=== PATIENT | female | born 1995 | race Caucasian/White ===

== ENCOUNTER 2017-05-12 20:17 | Emergency (ER) | payer OTHER ==
[~2017-05-12 20:17] MED LIST: COLACE 100MG C100 MG PO
== END 2017-05-12 23:10 | disposition left against medical advice (07) ==
LOC: ER1 20:17
DX: Z53.21 Procedure and treatment not carried out due to patient leaving prior to being seen by health care provider (principal)

== ENCOUNTER → 2021-05-18 | Outpatient (CLI) | payer OTHER ==
[~2021-05-18] MED LIST changes: +HYDROCODON-ACE1 EAC2 PO
== END ==
LOC: KOH-I 10:19
DX: S83.242A Other tear of medial meniscus, current injury, left knee, initial encounter (principal)
CPT/HCPCS: 73721

== ENCOUNTER → 2021-06-19 | Day surgery (SDC) | payer OTHER ==
[~2021-06-19] VITALS: Ht 162.6 cm; Wt 75.7 kg
[2021-06-19 06:34] LABS: HEMOGLOBIN 15.9 gm/dl (12.3-15.3); RED BLOOD COUNT 5.12 M/UL (4.00-5.10); WHITE BLOOD COUNT 9.7 K/UL (4.5-11.0)
[2021-06-19 06:48] LABS: BUN/CREATININE RATIO 15 (0-10)
== END | disposition home or self-care (01) ==
LOC: OR 05:39
PROVIDERS: Orthopaedic Surgery
DX: S83.282A Other tear of lateral meniscus, current injury, left knee, initial encounter (principal); M94.262 Chondromalacia, left knee; F17.210 Nicotine dependence, cigarettes, uncomplicated; Z98.51 Tubal ligation status; X58.XXXA Exposure to other specified factors, initial encounter; Z20.822 Contact with and (suspected) exposure to COVID-19; I10 Essential (primary) hypertension; K21.9 Gastro-esophageal reflux disease without esophagitis
CPT/HCPCS: 36415; 80048; 85025; J0171; J0690; J1100; J1170; J2001; J2250; J2405; J2704; J2765; J3010; J7120